=== PATIENT | male | born 1995 | race African-American/Black ===

== ENCOUNTER 2017-07-08 08:09 | Emergency (ER) | payer BC ==
[~2017-07-08] VITALS: Ht 185.4 cm; Wt 68.0 kg
[2017-07-08 08:14] VITALS: BP 133/76
[2017-07-08] MEDS ORDERED: NOHOMEMEDICATIONS (08:21)
== END 2017-07-08 08:43 | disposition home or self-care (01) ==
LOC: ER 08:09
DX: M54.5 Low back pain (principal); V89.2XXA Person injured in unspecified motor-vehicle accident, traffic, initial encounter; Y93.I9 Activity, other involving external motion; Y92.89 Other specified places as the place of occurrence of the external cause; Y99.8 Other external cause status

== ENCOUNTER 2020-09-27 21:09 | Emergency (ER) | payer BC ==
[~2020-09-27] VITALS: Ht 188 cm; Wt 89.8 kg
[~2020-09-27 21:09] MED LIST: NOHOMEMEDICATIONS
[2020-09-27 21:55] LABS: URINE BILIRUBIN NEGATIVE (Negative); URINE BLOOD TRACE (Negative); URINE CLARITY CLEAR; URINE COLOR YELLOW; URINE GLUCOSE-RANDOM* NEGATIVE (Negative); URINE KETONES TRACE (Negative); URINE LEUKOCYTES-REFLEX NEGATIVE (Negative); URINE NITRITE-REFLEX NEGATIVE (Negative); URINE PROTEIN (DIPSTICK) NEGATIVE (Negative); URINE SPECIFIC GRAVITY 1.015 (1.005-1.035)
[2020-09-28 00:01] LABS: ABSOLUTE NEUTROPHILS 7.4 thou/uL (1.4-8.2); BASOPHILS 0.3 % (0.0-2.0); EOSINOPHILS 0.5 % (0.0-3.0); HEMATOCRIT 41.5 % (42.0-52.0); HEMOGLOBIN 14.2 gm/dL (14.0-18.0); LYMPHOCYTES 12.1 % (24.0-44.0); MCHC 34.3 g/dL (28.0-37.0); MCV 87.4 fL (80.0-100.0); MONOCYTES 7.8 % (1.0-8.0); PLATELET COUNT 180 thou/uL (150-400); POLYS 79.3 % (36.0-66.0); RBC 4.75 mil/uL (4.50-6.00); RDW 13.8 % (10.5-14.5); WBC 9.3 thou/uL (4.0-11.0)
[2020-09-28 00:24] LABS: CREATININE 0.8 mg/dL (0.7-1.3)
[2020-09-28] MEDS ORDERED: BENTYL 10 MG CA10 M1 PO (00:24)
[2020-09-28 00:31] LABS: ALBUMIN 4.5 g/dL (3.4-5.0); TOTAL BILIRUBIN 1.2 mg/dL (0.2-1.0); TOTAL PROTEIN 7.6 g/dL (6.4-8.2)
[2020-09-28 00:55] VITALS: BP 130/80
== END 2020-09-28 00:53 | disposition home or self-care (01) ==
LOC: ER 21:09
PROVIDERS: Emergency Medicine; Nurse Practitioner
DX: R10.13 Epigastric pain (principal); R10.33 Periumbilical pain; R11.0 Nausea